=== PATIENT | male | born 1955 | race Caucasian/White ===

== ENCOUNTER → 2016-07-15 | Outpatient (CLI) | payer OTHER ==
[~2016-07-15] MED LIST: ALLO300T2 PO; AMLO-114 PO; CHOL20007 PO; LOSA50TA6 PO; METF500T PO; PANT40TA PO; POTA-335 PO; PRLSR20 PO; TRIA37.5 PO
[2016-07-15 12:23] LABS: BASO % 0.6 %; BASO ABS # 0.05 K/uL (0-0.2); COMPLETE YES; EOS % 1.2 %; HEMATOCRIT 47.7 % (42-52); IG% 0.4 %; LYMPH % 26.8 %; MEAN CORPUSCULAR HEMOGLOBIN 29.2 pg (25-34); MEAN CORPUSCULAR HGB CONC 32.1 g/dl (32-36); MEAN PLATELET VOLUME 10.1 fL (7.4-10.4); MONO % 8.9 %; NEUT % 62.1 %; PLATELET COUNT 287 K/uL (130-400); RED BLOOD COUNT 5.24 M/uL (4.7-6.1); WHITE BLOOD COUNT 8.21 K/uL (4.8-10.8)
[2016-07-15 12:41] LABS: ALB/GLOB RATIO 1.1 (0.9-2); ALKALINE PHOSPHATASE 76 U/L (45-117); ALT/SGPT 31 U/L (12-78); AST/SGOT 12 U/L (15-37); BLOOD UREA NITROGEN 22 mg/dl (7-18); BUN/CREATININE RATIO 18.4 (10-20); CALCIUM 8.9 mg/dl (8.5-10.1); CARBON DIOXIDE 28 mmol/L (21-32); CHLORIDE 103 mmol/L (98-107); CHOLESTEROL 152 mg/dl (0-200); CHOLESTEROL/HDL RATIO 3.9; GLUCOSE 118 mg/dl (70-99); HDL CHOLESTEROL 39 mg/dl; POTASSIUM 4.1 mmol/L (3.5-5.1); SODIUM 140 mmol/L (136-145)
[2016-07-15 12:50] LABS: ESTIMATED AVERAGE GLUCOSE 126 mg/dl; HA1C FLAG Normal (Normal)
[2016-07-15 12:55] LABS: LDL CHOLESTEROL CALCULATED 91 mg/dl; PROSTATE SPECIFIC ANTIGEN 0.631 ng/ml (0.000-4.000); TRIGLYCERIDES 110 mg/dl (0-150); VERY LOW DENSITY LIPOPROT CALC 22 mg/dl
== END | disposition home or self-care (01) ==
LOC: C.LABBFT 07:46
PROVIDERS: ATTEND Internal Medicine
DX: E78.5 Hyperlipidemia, unspecified (principal); E11.9 Type 2 diabetes mellitus without complications; Z12.5 Encounter for screening for malignant neoplasm of prostate

== ENCOUNTER → 2016-07-30 | Outpatient (CLI) | payer OTHER ==
[2016-07-30 14:14] LABS: LYME DISEASE AB IGG NEG (NEG)
[2016-07-30 14:15] LABS: LYME DISEASE AB IGM NEG (NEG)
== END | disposition home or self-care (01) ==
LOC: C.LABBFT 09:59
PROVIDERS: ATTEND Internal Medicine
DX: M25.50 Pain in unspecified joint (principal)

== ENCOUNTER → 2016-10-23 | Outpatient (CLI) | payer OTHER ==
[~2016-10-23] MED LIST changes: +ATOR-22 PO; -METF500T PO; -PRLSR20 PO
[2016-10-23 13:00] LABS: BLOOD UREA NITROGEN 16 mg/dl (7-18); BUN/CREATININE RATIO 13.4 (10-20); CALCIUM 8.9 mg/dl (8.5-10.1); CARBON DIOXIDE 30 mmol/L (21-32); CHLORIDE 106 mmol/L (98-107); GLUCOSE 110 mg/dl (70-99); POTASSIUM 3.5 mmol/L (3.5-5.1); SODIUM 143 mmol/L (136-145)
== END | disposition home or self-care (01) ==
LOC: C.LABBFT 10:58
PROVIDERS: ATTEND Physician Assistant Medical
DX: I10 Essential (primary) hypertension (principal)

== ENCOUNTER → 2017-01-02 | Day surgery (SDC) | payer OTHER ==
[2016-09-20 11:33] VITALS: BMI 33.0
[2016-12-30 10:40] VITALS: BMI 33.0
[~2017-01-02] VITALS: Ht 182.9 cm; Wt 111.4 kg
[~2017-01-02] MED LIST changes: -ATOR-22 PO; +LIDOCAINE HCL 2% 2 ML VIAL (20MG/ML) ONE; -POTA-335 PO; +PROPOFOL IV EMULSION 10 MG/ML 20 ML VIAL IV ONE; +SODIUM CHLORIDE 0.9% 500ML 500 ML IV ONE
[2017-01-02 13:45] VITALS: Ht 182.9 cm; Wt 111.4 kg
[2017-01-02 13:46] VITALS: TEMP 36.8
--- NOTE | 2017-01-02 14:31 | Endo History and Physical ---
History & Physical Date of Service: Jan 02, 2017. 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 Past Surgical History Hx Cardiac Surgery: No Hx Internal Defibrillator: No Hx Pacemaker: No Hx Abdominal Surgery: Yes (INCARCERATED HERNIA REPAIR) Hx of Implantable Prosthesis: No Hx Post-Op Nausea and Vomiting: No Hx Cancer Surgery: Yes (BCC REMOVALS (MOHS)) Hx Thoracic Surgery: No Hx Orthopedic: No Hx Urinary Tract Surgery: No Family History None Social History Smoking Status: Never Smoker Hx Substance Use: No Hx Alcohol Use: Yes (OCAS ) Allergies Coded Allergies: No Known Allergies (Verified , 01/02/17) Current Medications Reported Home Medications Medications Dose Route/Sig Max Daily Dose Days Date Category Cozaar (Losartan Potassium) 50 Mg Tab 50 Mg PO QAM 12/30/16 Reported Vitamin D3 (Cholecalciferol) 2,000 Unit Tab 1 Tab PO QAM 09/20/16 Reported Protonix (Pantoprazole Sodium) 40 Mg Tab 40 Mg PO QAM 09/20/16 Reported Zyloprim (Allopurinol) 300 Mg Tab 300 Mg PO QAM 02/10/12 Reported Norvasc (Amlodipine Besylate) 10 Mg Tab 10 Mg PO QAM 04/16/06 Reported Dyazide 37.5MG/25MG (Triamterene/HCTZ) Cap 1 Tab PO QAM 04/16/06 Reported Vital Signs Weight (Kilograms): 111.36 Height (Feet): 6 Height (Inches): 0 Date Time Temp Pulse Resp B/P (MAP) Pulse Ox O2 Delivery O2 Flow Rate FiO2 01/02/17 13:46 36.8 50 20 134/77 (96) 95 Room Air Physical Exam General Appearance: WD/WN, no apparent distress Respiratory/Chest: Auscultation: breath sounds normal Cardiovascular: Heart Auscultation: RRR Abdomen: Bowel Sounds: normal Inspection & Palpation: soft, non-distended, no tenderness, guarding & rebound Assessment and Plan Assessment: 61 yo CM who presents for 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 Plan: Proceed with EGD.
--- NOTE | 2017-01-02 14:48 | Discharge Instructions ---
Endoscopy Patient Instructions Date / Procedure(s) Performed Jan 02, 2017. EGD Allergy Information Coded Allergies: No Known Allergies (Verified , 01/02/17) Discharge Date / Findings Jan 02, 2017. Patel's Esophagus s/p biopsies Hiatal hernia Medication Instructions OK to resume all medications today as prescribed Reported Home Medications Medications Dose Route/Sig Max Daily Dose Days Date Category Cozaar (Losartan Potassium) 50 Mg Tab 50 Mg PO QAM 12/30/16 Reported Vitamin D3 (Cholecalciferol) 2,000 Unit Tab 1 Tab PO QAM 09/20/16 Reported Protonix (Pantoprazole Sodium) 40 Mg Tab 40 Mg PO QAM 09/20/16 Reported Zyloprim (Allopurinol) 300 Mg Tab 300 Mg PO QAM 02/10/12 Reported Norvasc (Amlodipine Besylate) 10 Mg Tab 10 Mg PO QAM 04/16/06 Reported Dyazide 37.5MG/25MG (Triamterene/HCTZ) Cap 1 Tab PO QAM 04/16/06 Reported Provider Instructions Activity Restrictions - No exercising or heavy lifting for 24 hours. - Do not drink alcohol the day of the procedure. - Do not drive a car or operate machinery until the day after the procedure. - Do not make any important decisions or sign important papers in 24 hours after the procedure. Following Day: - Return to full activity which may include returning to work/school. Diet Start your diet with liquids and light foods (jello, soup, juice, toast). Then eat your usual diet if not nauseated. Treatment For Common After Affects For mild abdominal pain, bloating, or excessive gas: - Rest - Eat lightly - Lie on right side Follow-Up Information Follow-up with DR CHOW as scheduled Anesthesia Information What You Should Know You have had a procedure that required some medicine to reduce anxiety and discomfort. This treatment is called moderate sedation. After receiving the treatment, you may be sleepy, but you will be able to breathe on your own. The effects of the treatment may last for several hours. Follow these instructions along with Activity/Diet recommendations noted above: * Do NOT do anything where dizziness or clumsiness would be dangerous. * Rest quietly at home today, then you can be up and about tomorrow. * Have a responsible person stay with you the rest of today. * You may have had an I.V. today. If so, you may take the dressing off later today. Recommendations Call your doctor if: * Trouble breathing * Continuous vomiting for more than 24 hours * Temperature above 101 degrees * Severe abdominal pain or bloating * Pain not relieved by pain medicine ordered * There is increased drainage or redness from any incision * A large amount of rectal bleeding greater than 2-3 tablespoons. (If you had a polyp/s removed or have hemorrhoids, a small amount of blood - from the rectum is to be expected.) * You have any unanswered questions or concerns. IN THE EVENT OF A SERIOUS EMERGENCY, GO TO THE NEAREST EMERGENCY ROOM Your discharge instructions were prepared by provider Jason Navarrete. Patient Instructions Signature Page Hasmukh Allison Patient (or Guardian) Signature/Date: I have read and understand the instructions given to me by my caregivers. Caregiver/RN/Doctor Signature/Date: The above-named patient and/or guardian has received patient instructions on this date. + Original Patient Signature Page (only) stays with chart. Please make copy for patient.
--- NOTE | 2017-01-02 14:56 | GI REPORT ---
Procedure Date: 01/02/2017 2:08 PM Procedure: Upper GI endoscopy Indications: Patel's esophagus Medicines: Monitored Anesthesia Care Complications: No immediate complications. Estimated Blood Loss: Estimated blood loss: none. Procedure: Pre-Anesthesia Assessment: - Prior to the procedure, a History and Physical was performed, and patient medications and allergies were reviewed. The patient's tolerance of previous anesthesia was also reviewed. The risks and benefits of the procedure and the sedation options and risks were discussed with the patient. All questions were answered, and informed consent was obtained. Prior Anticoagulants: The patient has taken no previous anticoagulant or antiplatelet agents. ASA Grade Assessment: II - A patient with mild systemic disease. After reviewing the risks and benefits, the patient was deemed in satisfactory condition to undergo the procedure. After obtaining informed consent, the endoscope was passed under direct vision. Throughout the procedure, the patient's blood pressure, pulse, and oxygen saturations were monitored continuously. The scope was introduced through the mouth, and advanced to the second part of duodenum. The upper GI endoscopy was accomplished without difficulty. The patient tolerated the procedure well. Findings: There were esophageal mucosal changes suspicious for short-segment Patel's esophagus present at the gastroesophageal junction. The maximum longitudinal extent of these mucosal changes was 2 cm in length. Mucosa was biopsied with a cold forceps for histology. One specimen bottle was sent to pathology. A small hiatus hernia was present. The examined duodenum was normal. Impression: - Esophageal mucosal changes suspicious for short-segment Patel's esophagus. Biopsied. - Small hiatus hernia. - Normal examined duodenum. Recommendation: - Resume previous diet. - Continue present medications. - Await pathology results. - Return to primary care physician as previously scheduled. Jason Navarrete, DO 01/02/2017 2:55:46 PM This report has been signed electronically. Note Initiated On: 01/02/2017 2:08 PM I attest to the content of the Intraoperative Record and orders documented therein, exceptions below
--- NOTE | 2017-01-02 15:10 | Anesthesiology Progress Note ---
Anesthesia Post Op Note Date & Time Jan 02, 2017 at 15:10 Vital Signs Pain Intensity: 0 Vital Signs Past 12 Hours Date Time Temp Pulse Resp B/P (MAP) Pulse Ox O2 Delivery O2 Flow Rate FiO2 01/02/17 15:07 53 18 142/90 (107) 95 Room Air 01/02/17 14:54 58 18 145/83 (103) 94 Room Air 01/02/17 14:49 66 16 132/80 (97) 96 Room Air 01/02/17 13:46 36.8 50 20 134/77 (96) 95 Room Air Notes Mental Status: alert / awake / arousable, participated in evaluation Pt Amnestic to Procedure: Yes Nausea / Vomiting: adequately controlled Pain: adequately controlled Airway Patency, RR, SpO2: stable & adequate BP & HR: stable & adequate Hydration State: stable & adequate Anesthetic Complications: no major complications apparent
[2017-01-02 15:17] VITALS: BP 138/101; PULSE 51; O2SAT 95
== END | disposition home or self-care (01) ==
LOC: C.GI 13:22
PROVIDERS: ATTEND Internal Medicine
DX: K20.9 Esophagitis, unspecified (principal); K44.9 Diaphragmatic hernia without obstruction or gangrene; Z85.828 Personal history of other malignant neoplasm of skin

== ENCOUNTER → 2017-01-15 | Outpatient (CLI) | payer OTHER ==
[~2017-01-15] MED LIST changes: -LIDOCAINE HCL 2% 2 ML VIAL (20MG/ML) ONE; -PROPOFOL IV EMULSION 10 MG/ML 20 ML VIAL IV ONE; -SODIUM CHLORIDE 0.9% 500ML 500 ML IV ONE
[2017-01-15 12:44] LABS: MANUAL MICROSCOPIC REQUIRED? NO; REVIEW REQ? NO; URINE APPEARANCE CLEAR (CLEAR); URINE BILIRUBIN NEG (NEG); URINE COLOR DK YELLOW; URINE NITRITE NEG (NEG); URINE SPECIFIC GRAVITY 1.026 (1.000-1.030); UROBILINOGEN NEG (NEG); ZZUR CULT IF INDIC CLEAN CATCH NO
[2017-01-15 13:07] LABS: ESTIMATED AVERAGE GLUCOSE 137 mg/dl; HA1C FLAG Normal (Normal)
[2017-01-15 13:24] LABS: RATIO 8.5 mcg/mg (0-30.0)
== END | disposition home or self-care (01) ==
LOC: C.LABBFT 09:17
PROVIDERS: ATTEND Internal Medicine
DX: E11.9 Type 2 diabetes mellitus without complications (principal); E55.9 Vitamin D deficiency, unspecified

== ENCOUNTER → 2017-04-18 | Outpatient (CLI) | payer OTHER | END | disposition home or self-care (01) | LOC: C.PATHSPEC 14:27 | PROVIDERS: ATTEND Dermatology | DX: D04.39 Carcinoma in situ of skin of other parts of face (principal); C44.212 Basal cell carcinoma of skin of right ear and external auricular canal; D04.61 Carcinoma in situ of skin of right upper limb, including shoulder ==

== ENCOUNTER → 2017-05-28 | Day surgery (SDC) | payer OTHER ==
[2017-05-09 09:51] VITALS: BMI 33.0
--- NOTE | 2017-05-09 10:09 | PAT Medication Instructions ---
Service Date May 09, 2017. Current Home Medication List Allopurinol (Zyloprim), 300 MG PO QAM Amlodipine (Norvasc), 10 MG PO QAM Atorvastatin (Lipitor), 20 MG PO HS Cholecalciferol (Vitamin D3), 1 TAB PO QAM Losartan Potassium (Cozaar), 50 MG PO QAM Pantoprazole (Protonix), 40 MG PO QAM Triamterene/Hctz (Dyazide 37.5MG/25MG), 1 TAB PO QAM Medication Instructions For Your Scheduled Surgery - Hold the following medications the morning of surgery: Triamterene/Hctz (Dyazide 37.5MG/25MG), 1 TAB PO QAM Cholecalciferol (Vitamin D3), 1 TAB PO QAM Losartan Potassium (Cozaar), 50 MG PO QAM - Take the following medications the morning of surgery with a sip of water: Pantoprazole (Protonix), 40 MG PO QAM Amlodipine (Norvasc), 10 MG PO QAM Allopurinol (Zyloprim), 300 MG PO QAM - Take the following medications as scheduled the night before surgery: Atorvastatin (Lipitor), 20 MG PO HS If you have any questions please call us at [phone] or [phone] or [phone]
[2017-05-09 11:08] LABS: BASO % 0.4 %; BASO ABS # 0.03 K/uL (0-0.2); COMPLETE YES; EOS % 1.4 %; HEMATOCRIT 43.1 % (42-52); IG% 0.1 %; LYMPH % 24.6 %; LYMPH ABS # 1.91 K/uL (1.2-3.4); MEAN CELL VOLUME 91.9 fL (80-100); MEAN CORPUSCULAR HEMOGLOBIN 30.3 pg (25-34); MEAN CORPUSCULAR HGB CONC 32.9 g/dl (32-36); MEAN PLATELET VOLUME 9.8 fL (7.4-10.4); NEUT % 64.5 %; PLATELET COUNT 245 K/uL (130-400); RED BLOOD COUNT 4.69 M/uL (4.7-6.1); WHITE BLOOD COUNT 7.76 K/uL (4.8-10.8)
[2017-05-09 11:21] LABS: PARTIAL THROMBOPLASTIN RATIO 1.1; PROTHROMBIN TIME (PATIENT) 10.7 SECONDS (9.0-12.0)
[2017-05-09 11:42] LABS: BUN/CREATININE RATIO 18.1 (10-20); CALCIUM 8.9 mg/dl (8.5-10.1); CREATININE 1.08 mg/dl (0.60-1.40); POTASSIUM 3.5 mmol/L (3.5-5.1)
[~2017-05-28] VITALS: Ht 182.9 cm; Wt 111.9 kg
[~2017-05-28] MED LIST changes: +ACETAMINOPHEN 325 MG TAB PO PRN; +ACETAMINOPHEN IV 1,000 MG in EMPTY BAG 0 ML IV PRN; +ACETAMINOPHEN IV 650 MG in EMPTY BAG 0 ML IV PRN; +ATOR-22 PO; +ATROPINE SULFATE 0.1 MG/ML 5ML SYR IV PRN; +BACITRACIN OINT 15 GM TUBE ONE; +CEFAZOLIN SOD 2000MG/10 ML IV PUSH IV ONE; +EpHEDrine SULFATE INJ 50 MG/ML AMP IV PRN; +EpINEphrine HCL INJ 1 MG/ML 5ML SYRINGE ONE; +FENTANYL CITRATE INJ 50 MCG/1 ML 2 ML VIAL IV PRN; +FENTANYL CITRATE INJ 50 MCG/1 ML 2 ML VIAL ONE; +LACTATED RINGER'S 1000ML 1,000 ML IV SCH; +LIDOCAINE HCL 2% 2 ML VIAL (20MG/ML) ONE; +LIDOCAINE/EPINEPHRINE 1% 20 ML VIAL ONE; +METOCLOPRAMIDE HCL INJ 5 MG/ML 2 ML VIAL IV PRN; +MIDAZOLAM HCL 1 MG/ML 2ML VIAL ONE; +ONDANSETRON INJ 2 MG/ML 2 ML VIAL IV PRN; +ONDANSETRON INJ 2 MG/ML 2 ML VIAL ONE; +OXYCODONE/ACETAMINOPHEN 5-325 TAB PO PRN; +POVIDONE-IODINE OP SOLN 30 ML BTL ONE; +PROMETHAZINE HCL INJ 6.25 MG in SODIUM CHLORIDE 0.9% 50ML 50 ML IV PRN; +PROPOFOL IV EMULSION 10 MG/ML 20 ML VIAL IV ONE; +SODIUM CHLORIDE 0.9% 1000ML 1,000 ML IV SCH
[2017-05-28 09:38] VITALS: BP 135/72; PULSE 50; TEMP 36.5; O2SAT 97; Ht 182.9 cm; Wt 111.9 kg
--- NOTE | 2017-05-28 11:16 | History & Physical Bridge Note ---
H&P Re-Evaluation Bridge Note: I have examined the patient, reviewed the History & Physical and in the interval since the performance of the History & Physical I have noted the following changes of clinical significance: No changes noted
--- NOTE | 2017-05-28 13:01 | Discharge Instructions ---
Discharge Instructions Date of Service May 28, 2017. Admission Reason for Admission: Basal Cell Carcinoma of Skin of Face; Squamous Ping Discharge Discharge Diagnosis / Problem: basal cell carcinoma and squamous cell carcinoma Discharge Goals Goal(s): Decrease discomfort Activity Recommendations Activity Limitations: per Instructions/Follow-up section ACTIVITY RECOMMENDATIONS: __Normal activities _x_No bending, lifting or straining __No driving _x_Driving allowed when you are off pain medications _x_Walking permitted __You should have help at home for ___ days DRESSINGS: __No dressings required _x_Keep dressings dry/in place until 3 days after surgery. YOu may then remove dressings and do not need to replace __Remove dressings ___ and leave dressings off __Apply ice ___ days __Remove dressings and reapply garment __Apply antibiotic ointment (Bacitracin, Neosporin, etc) to wounds 3-4 times/ day for 10 days BATHING: _x_Keep dressings dry _x_Sponge bathing permitted _x_Showering permitted after dressings are removed in 3 days _x_No swimming, hot tubs or soaking in a tub MEDICATIONS: Resume previous medications unless instructed otherwise by your surgeon. _x_Do not use aspirin, Motrin, Advil or Ibuprofen as these may promote bleeding. Please use Tylenol. _x_Prescription(s) provided: pain medication provided at your last office visit OTHER INSTRUCTIONS: __Record drain output 2-3 times per day SPECIAL CARE INSTRUCTIONS: * It is normal to have a mild fever after surgery. If your temperature is higher than 101.5 degrees F, please call the office at [phone]. * Constipation is a typical side effect of pain medication. An over-the- counter stool softener will help relieve this. * Leaking around surgical drains may occur and should not cause concern. Sometimes these drains become clogged. If this happens, remove the bulb and milk the clot out of the tube, then replace the bulb. * Drainage from wounds after liposuction is normal and should be expected. Garments will become soiled. You should protect furniture and bedding. This drainage should mostly subside within 2-3 days. Leave garments in place unless instructed to remove them. * If you have unusual drainage from a wound or are concerned you have an infection or have any questions or concerns, please call the office at [phone]. FOLLOW UP VISIT: If not already scheduled, please call the office, , when you return home after surgery to schedule an appointment to be seen in __6_ days. . Current Hospital Diet Patient's current hospital diet: Discharge Diet Recommended Diet: Regular Diet Pending Studies Studies pending at discharge: yes List of pending studies: pathology Medical Emergencies . Who to Call and When: Medical Emergencies: If at any time you feel your situation is an emergency, please call 911 immediately. . Non-Emergent Contact Non-Emergency issues call your: Primary Care Provider, Surgeon . "Provider Documentation" section prepared by Lalitha Hinkle. . VTE Core Measure Inpt VTE Proph given/why not?: SCD's [place] Drug Monitoring Program Search Results: no issues identified
--- NOTE | 2017-05-28 13:48 | [facility] Post Operative Brief Note ---
Immediate Operative Summary Operative Date May 28, 2017. 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 Jennifer Holley Lockstitch Front Edge Tape Sewer Surgeon(s) Lalitha Hinkle PA-C Estimated Blood Loss 5 Findings BCC right postauricular area; margins negative SCC (invasive) left forehead; margins negative Specimens Frozen specimen #1: Basal cell carcinoma behind right ear, suture raudel at 12 O'Clock sent to the lab at 1238 Frozen specimen #2: Squamous cell carcinoma left forehead, suture raudel at 12 O'Clock sent to the lab at 1241 Permanent Specimen A: Squamous cell carcinoma in situ right forearm Anesthesia general Complication(s) None Disposition Recovery Room / PACU
--- NOTE | 2017-05-28 14:43 | Anesthesiology Progress Note ---
Anesthesia Post Op Note Date & Time May 28, 2017 at 14:43 Vital Signs Pain Intensity: 0 Vital Signs Past 12 Hours Date Time Temp Pulse Resp B/P (MAP) Pulse Ox O2 Delivery O2 Flow Rate FiO2 05/28/17 14:40 63 15 153/90 96 Nasal Cannula 3 05/28/17 14:30 36.2 64 15 143/89 94 Nasal Cannula 3 05/28/17 14:20 63 15 143/85 94 Oxymask 5 05/28/17 14:10 64 14 149/91 95 Oxymask 5 05/28/17 14:03 36.1 73 12 157/97 94 Oxymask 5 05/28/17 09:38 36.5 50 18 135/72 (93) 97 Room Air Notes Mental Status: alert / awake / arousable, participated in evaluation Pt Amnestic to Procedure: Yes Nausea / Vomiting: adequately controlled Pain: adequately controlled Airway Patency, RR, SpO2: stable & adequate BP & HR: stable & adequate Hydration State: stable & adequate Anesthetic Complications: no major complications apparent
[2017-05-28 14:45] VITALS: BP 134/83; PULSE 64; TEMP 36.5; O2SAT 95
[2017-05-28 15:15] VITALS: BP 134/75; PULSE 58; O2SAT 97
[2017-05-28 15:45] VITALS: BP 131/76; PULSE 61; TEMP 36.4; O2SAT 94
--- NOTE | 2017-05-28 16:37 | OPERATIVE REPORT ---
DATE OF OPERATION: 05/28/2017 PREOPERATIVE DIAGNOSES: Basal cell carcinoma, right postauricular area; squamous cell carcinoma in situ, left forehead; and squamous cell carcinoma in situ, right forearm. PROCEDURE: Excision of left forehead squamous cell carcinoma with frozen section and primary closure, excision of right postauricular basal cell carcinoma with frozen section and primary closure, and excision of right forearm squamous cell carcinoma in situ with primary closure. SURGEON: Dr. Jennifer Holley. JUDICIAL CLERK: Lalitha Hinkle PA-C. ANESTHESIA: General. COMPLICATIONS: None. INDICATION FOR THE PROCEDURE: The patient is a 62-year-old male who was referred to my office by Dr. Whitney regarding several biopsy proven skin malignancies. Given their size and location, he was referred to me for possible excision. We discussed options including a referral for from Mohs' surgery or excision with frozen section. He elected excision with frozen section based on prior negative experiences with Mohs. BRIEF DESCRIPTION OF THE PROCEDURE: The risks, benefits and alternatives of the procedure were explained to the patient, who agreed and signed consent. He was identified and marked in the preoperative holding area. He was brought to the operating room, positioned supine and an LMA was placed without incident. Surgical sites were prepped and draped sterilely. A time-out procedure was performed. Each lesion was marked for excision. Each lesion was then anesthetized using 1% lidocaine with epinephrine with a fresh needle for each injection. I began with the excision of the basal cell carcinoma behind the right ear. Maximal excision diameter of this lesion was 3 x 3 cm. A 15 blade scalpel made the circular skin incision into the underlying subcutaneous fat. The lesion was removed with some underlying subcutaneous fat. A 5-0 silk suture was used to raudel the 12 o'clock position and the lesion was sent for frozen section. Hemostasis was achieved with electrocautery. Wet saline soaked gauze was placed in the wound bed while I awaited the results. A similar excision was performed on the left forehead with maximal excision of 2 x 1.5 cm. A suture marked at 12 o'clock. The lesion was taken with some underlying subcutaneous fat and sent for frozen section. Lastly, the right forearm lesion was excised with maximal excision diameter of 1.5 x 1.5 cm. Given that this was an extremity lesion and I was able to take a wide margin, I did not send this for frozen section. The right forearm wound was then closed in an elliptical fashion using 3-0 PDS interrupted dermal sutures and 3-0 Monocryl running subcuticular suture for a total wound closure length of 6 cm. Frozen section results were called and the right ear lesion was noted to be a nodular basal cell carcinoma with negative margins. The left forehead lesion was noted to be a squamous cell carcinoma with invasion with all final margins negative. Both of these lesions were able to be closed in a primary fashion. The postauricular wound was converted from a circular wound into an elliptical wound to facilitate closure and the scar was carried around the curve of the helical groove. 3-0 PDS interrupted dermal sutures were placed followed by 4-0 Vicryl interrupted half buried horizontal mattress sutures. Total wound closure length was 4 cm. Left forehead wound was also converted into an elliptical incision along the lines of relaxed skin tension. Hemostasis was achieved with electrocautery. The wound was reapproximated using 4-0 PDS interrupted dermal sutures and 5-0 Monocryl running subcuticular suture. Total wound closure length was 4 cm. Antibiotic ointment and dry dressings were placed to the left forehead and right postauricular lesion closures. The right forearm wound was dressed with Dermabond. The procedure was tolerated well. The patient was awakened and transferred to recovery in satisfactory condition. I attest to the content of the Intraoperative Record and any orders documented therein. Any exceptions are noted below. [facility]
== END | disposition home or self-care (01) ==
LOC: C.ACU 09:25
PROVIDERS: ATTEND Plastic Surgery
DX: C44.329 Squamous cell carcinoma of skin of other parts of face (principal); C76.41 Malignant neoplasm of right upper limb; C44.41 Basal cell carcinoma of skin of scalp and neck; L57.0 Actinic keratosis; I78.1 Nevus, non-neoplastic; E11.9 Type 2 diabetes mellitus without complications; E78.5 Hyperlipidemia, unspecified; I10 Essential (primary) hypertension; A69.20 Lyme disease, unspecified; E55.9 Vitamin D deficiency, unspecified; Z80.8 Family history of malignant neoplasm of other organs or systems

== ENCOUNTER → 2017-06-13 | Outpatient (CLI) | payer OTHER ==
[~2017-06-13] MED LIST changes: -ACETAMINOPHEN 325 MG TAB PO PRN; -ACETAMINOPHEN IV 1,000 MG in EMPTY BAG 0 ML IV PRN; -ACETAMINOPHEN IV 650 MG in EMPTY BAG 0 ML IV PRN; -ATROPINE SULFATE 0.1 MG/ML 5ML SYR IV PRN; -BACITRACIN OINT 15 GM TUBE ONE; -CEFAZOLIN SOD 2000MG/10 ML IV PUSH IV ONE; -EpHEDrine SULFATE INJ 50 MG/ML AMP IV PRN; -EpINEphrine HCL INJ 1 MG/ML 5ML SYRINGE ONE; -FENTANYL CITRATE INJ 50 MCG/1 ML 2 ML VIAL IV PRN; -FENTANYL CITRATE INJ 50 MCG/1 ML 2 ML VIAL ONE; -LACTATED RINGER'S 1000ML 1,000 ML IV SCH; -LIDOCAINE HCL 2% 2 ML VIAL (20MG/ML) ONE; -LIDOCAINE/EPINEPHRINE 1% 20 ML VIAL ONE; -METOCLOPRAMIDE HCL INJ 5 MG/ML 2 ML VIAL IV PRN; -MIDAZOLAM HCL 1 MG/ML 2ML VIAL ONE; -ONDANSETRON INJ 2 MG/ML 2 ML VIAL IV PRN; -ONDANSETRON INJ 2 MG/ML 2 ML VIAL ONE; -OXYCODONE/ACETAMINOPHEN 5-325 TAB PO PRN; -POVIDONE-IODINE OP SOLN 30 ML BTL ONE; -PROMETHAZINE HCL INJ 6.25 MG in SODIUM CHLORIDE 0.9% 50ML 50 ML IV PRN; -PROPOFOL IV EMULSION 10 MG/ML 20 ML VIAL IV ONE; -SODIUM CHLORIDE 0.9% 1000ML 1,000 ML IV SCH
[2017-06-13 12:43] LABS: BASO % 0.7 %; BASO ABS # 0.05 K/uL (0-0.2); COMPLETE YES; EOS % 0.9 %; HEMATOCRIT 44.5 % (42-52); IG% 0.4 %; LYMPH % 29.2 %; LYMPH ABS # 2.19 K/uL (1.2-3.4); MEAN CELL VOLUME 92.5 fL (80-100); MEAN CORPUSCULAR HEMOGLOBIN 30.4 pg (25-34); MEAN CORPUSCULAR HGB CONC 32.8 g/dl (32-36); MEAN PLATELET VOLUME 10.3 fL (7.4-10.4); NEUT % 58.8 %; PLATELET COUNT 289 K/uL (130-400); RED BLOOD COUNT 4.81 M/uL (4.7-6.1); WHITE BLOOD COUNT 7.49 K/uL (4.8-10.8)
[2017-06-13 12:48] LABS: PARTIAL THROMBOPLASTIN RATIO 1.1; PROTHROMBIN TIME (PATIENT) 10.7 SECONDS (9.0-12.0)
[2017-06-13 12:50] LABS: ALT/SGPT 43 U/L (12-78); AST/SGOT 20 U/L (15-37); BLOOD UREA NITROGEN 21 mg/dl (7-18); BUN/CREATININE RATIO 18.9 (10-20); CALCIUM 8.8 mg/dl (8.5-10.1); CARBON DIOXIDE 28 mmol/L (21-32); CHLORIDE 106 mmol/L (98-107); CREATININE 1.13 mg/dl (0.60-1.40); GLUCOSE 118 mg/dl (70-99); POTASSIUM 3.6 mmol/L (3.5-5.1); SODIUM 139 mmol/L (136-145)
[2017-06-13 12:51] LABS: ESTIMATED AVERAGE GLUCOSE 137 mg/dl; HA1C FLAG Normal (Normal)
[2017-06-13 12:53] LABS: ALB/GLOB RATIO 1.2 (0.9-2); ALKALINE PHOSPHATASE 71 U/L (45-117); CHOLESTEROL 103 mg/dl (0-200); CHOLESTEROL/HDL RATIO 2.9; HDL CHOLESTEROL 35 mg/dl; LDL CHOLESTEROL CALCULATED 48 mg/dl; TRIGLYCERIDES 102 mg/dl (0-150); VERY LOW DENSITY LIPOPROT CALC 20 mg/dl
== END | disposition home or self-care (01) ==
LOC: C.LABBFT 09:35
PROVIDERS: ATTEND Internal Medicine
DX: Z85.828 Personal history of other malignant neoplasm of skin (principal); E11.9 Type 2 diabetes mellitus without complications; E78.5 Hyperlipidemia, unspecified

== ENCOUNTER 2017-08-24 16:24 | Emergency (ER) | payer OTHER ==
[~2017-08-24] VITALS: Ht 180.3 cm; Wt 116.7 kg
[2017-08-24 16:25] VITALS: TEMP 36.7; Ht 180.3 cm; Wt 116.7 kg
[2017-08-24] MEDS ORDERED: MoRPHine SULFATE 4 MG/ML 1 ML CARP\\VIAL IV STA ×3 (16:41→21:38)
[2017-08-24] MEDS ORDERED: MoRPHine SULFATE 4 MG/ML 1 ML CARP\\VIAL ONE (16:49)
[2017-08-24 17:12] LABS: BASO % 0.5 %; BASO ABS # 0.05 K/uL (0-0.2); EOS % 0.7 %; EOS ABS # 0.07 K/uL (0-0.5); HEMATOCRIT 44.9 % (42-52); HEMOGLOBIN 15.3 g/dL (14.0-18.0); IG# 0.02 K/uL (0.00-0.02); LYMPH ABS # 2.39 K/uL (1.2-3.4); MEAN CELL VOLUME 89.1 fL (80-100); MEAN CORPUSCULAR HEMOGLOBIN 30.4 pg (25-34); MEAN CORPUSCULAR HGB CONC 34.1 g/dl (32-36); MEAN PLATELET VOLUME 9.6 fL (7.4-10.4); MONO % 7.6 %; MONO ABS # 0.79 K/uL (0.11-0.59); NEUT ABS # 7.09 K/uL (1.4-6.5); PLATELET COUNT 253 K/uL (130-400); RED CELL DISTRIBUTION WIDTH CV 14.2 % (11.5-14.5); WHITE BLOOD COUNT 10.41 K/uL (4.8-10.8)
[2017-08-24 17:23] LABS: CREATININE 1.31 mg/dl (0.60-1.40); POTASSIUM 3.1 mmol/L (3.5-5.1)
[2017-08-24] MEDS ORDERED: CEFAZOLIN IV 1,000 MG in DEXTROSE 5% 50ML 50 ML IV STA ×2 (17:23→17:39)
--- NOTE | 2017-08-24 17:32 | DIAGNOSTIC IMAGING REPORT ---
LEFT HAND 3 VIEWS HISTORY: Left hand pain. L hand sandblasting injury COMPARISON: None. FINDINGS: No fracture or dislocation within the left hand. Diffuse soft tissue gas throughout the majority of the left hand. This extends into the wrist. A few punctate radiopaque foreign bodies overlying the first metacarpal. This could be on the skin surface. IMPRESSION: 1. No fracture or dislocation within the left hand. 2. Near diffuse soft tissue gas throughout the left hand. This raises the possibility of necrotizing fasciitis. However, this could also be due to an acute air injury. Clinical correlation recommended. 3. A few punctate radiopaque foreign bodies overlying the first metacarpal. These could be located on the skin surface. 4. These findings were discussed with the patient's physician surgical supply assistant, Oleg Miller at 530 p.m. on 08/24/2017. Electronically signed by: Tomy Pina M.D. 08/24/2017 5:31 PM Dictated Date/Time: 08/24/2017 5:23 PM
[2017-08-24] MEDS ORDERED: METF500T5 PO (17:54)
[2017-08-24] MEDS ORDERED: CEFAZOLIN IV 2,000 MG in SYRINGE 0 ML IV ONE (18:00)
--- NOTE | 2017-08-24 21:37 | EMERGENCY ROOM VISIT NOTE ---
History First contact with patient: 16:38 Chief Complaint: LACERATION/CUT (NON-SUTURE) Stated Complaint: LEFT HAND CUT Nursing Triage Summary: Pt states, "I was sandblasting and took a chunk out of my left hand. 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 Tetanus is UTD. History of Present Illness The patient is a 62 year old male who presents to the Emergency Room via private vehicle with complaints of "cut left hand". The patient states that about 15 minutes prior to arrival he was operating a sandblasting device, when he accidentally struck the back of his left hand. He notes he is right-hand dominant. He states that the force blasted through his glove and into his hand. He states that it was for brief period of time. He now notes pain radiating from his left hand up to his arm. He notes his tetanus is up-to- date. He rates the overall pain as an 8/10. He last ate at 1 PM. Review of Systems A complete 10-point Review of Systems was discussed with the patient, with pertinent positives and negatives listed in the History of Present Illness. All remaining Review of Systems questions can be considered negative unless otherwise specified. Past Medical/Surgical History Diabetes, HTN Family History Non contributory Social History Smoking Status: Never Smoker Pt. lives locally Current/Historical Medications Scheduled Allopurinol (Zyloprim), 300 MG PO QAM Amlodipine (Norvasc), 10 MG PO QAM Atorvastatin (Lipitor), 20 MG PO HS Losartan Potassium (Cozaar), 50 MG PO QAM Metformin Hcl Er (Glucophage Er), 500 MG PO QAM Pantoprazole (Protonix), 40 MG PO QAM Triamterene/Hctz (Dyazide 37.5MG/25MG), 1 TAB PO QAM Physical Exam Vital Signs Date Time Temp Pulse Resp B/P (MAP) Pulse Ox O2 Delivery O2 Flow Rate FiO2 08/24/17 23:18 58 18 130/75 97 Room Air 08/24/17 21:31 62 18 133/94 96 Room Air 08/24/17 19:57 70 20 138/78 95 Nasal Cannula 1.0 08/24/17 18:06 65 18 103/68 96 Room Air 08/24/17 16:25 36.7 90 16 164/85 95 Room Air Physical Exam VITAL SIGNS - Vital signs and nursing notes were reviewed. Stable. GENERAL -62-year-old male appearing his stated age who is in no acute distress. Communicates well with provider and answers questions appropriately. SKIN - Without rashes. No petechial rashes. Overlying the dorsal aspect of his left hand between the first and second metacarpals there is a 1.5 cm in diameter wound that tracks deeply into the hand. No bleeding noted. HEAD - NC/AT EXTREMITIES - there is tenderness to palpation overlying the patient's hand and wrist. There is crepitus to palpation with evidence of subcutaneous air extending from the patient's left dorsum of the hand to the region just proximal to the elbow. He is neurovascularly intact in this region. Medical Decision & Procedures ER Provider Diagnostic Interpretation: LEFT HAND 3 VIEWS HISTORY: Left hand pain. L hand sandblasting injury COMPARISON: None. FINDINGS: No fracture or dislocation within the left hand. Diffuse soft tissue gas throughout the majority of the left hand. This extends into the wrist. A few punctate radiopaque foreign bodies overlying the first metacarpal. This could be on the skin surface. IMPRESSION: 1. No fracture or dislocation within the left hand. 2. Near diffuse soft tissue gas throughout the left hand. This raises the possibility of necrotizing fasciitis. However, this could also be due to an acute air injury. Clinical correlation recommended. 3. A few punctate radiopaque foreign bodies overlying the first metacarpal. These could be located on the skin surface. 4. These findings were discussed with the patient's physician plumber's assistant, Oleg Miller at 530 p.m. on 08/24/2017. Electronically signed by: Tomy Pina M.D. 08/24/2017 5:31 PM Dictated Date/Time: 08/24/2017 5:23 PM Laboratory Results 08/24/17 16:50 Red Blood Count 5.04, Mean Corpuscular Volume 89.1, Mean Corpuscular Hemoglobin 30.4, Mean Corpuscular Hemoglobin Concent 34.1, Mean Platelet Volume 9.6, Neutrophils (%) (Auto) 68.0, Lymphocytes (%) (Auto) 23.0, Monocytes (%) (Auto) 7.6, Eosinophils (%) (Auto) 0.7, Basophils (%) (Auto) 0.5, Neutrophils # (Auto) 7.09, Lymphocytes # (Auto) 2.39, Monocytes # (Auto) 0.79, Eosinophils # (Auto) 0.07, Basophils # (Auto) 0.05 08/24/17 16:50 Test 08/24/17 16:50 White Blood Count 10.41 K/uL (4.8-10.8) Red Blood Count 5.04 M/uL (4.7-6.1) Hemoglobin 15.3 g/dL (14.0-18.0) Hematocrit 44.9 % (42-52) Mean Corpuscular Volume 89.1 fL (80-100) Mean Corpuscular Hemoglobin 30.4 pg (25-34) Mean Corpuscular Hemoglobin Concent 34.1 g/dl (32-36) Platelet Count 253 K/uL (130-400) Mean Platelet Volume 9.6 fL (7.4-10.4) Neutrophils (%) (Auto) 68.0 % Lymphocytes (%) (Auto) 23.0 % Monocytes (%) (Auto) 7.6 % Eosinophils (%) (Auto) 0.7 % Basophils (%) (Auto) 0.5 % Neutrophils # (Auto) 7.09 K/uL (1.4-6.5) Lymphocytes # (Auto) 2.39 K/uL (1.2-3.4) Monocytes # (Auto) 0.79 K/uL (0.11-0.59) Eosinophils # (Auto) 0.07 K/uL (0-0.5) Basophils # (Auto) 0.05 K/uL (0-0.2) RDW Standard Deviation 46.0 fL (36.4-46.3) RDW Coefficient of Variation 14.2 % (11.5-14.5) Immature Granulocyte % (Auto) 0.2 % Immature Granulocyte # (Auto) 0.02 K/uL (0.00-0.02) Anion Gap 11.0 mmol/L (3-11) Est Creatinine Clear Calc Drug Dose 75.9 ml/min Estimated GFR () 67.2 Estimated GFR (Non- 57.9 BUN/Creatinine Ratio 14.3 (10-20) Calcium Level 9.0 mg/dl (8.5-10.1) Medications Administered Medications (Trade) Dose Ordered Sig/Kimmie Route Start Time Stop Time Status Last Admin Dose Admin Morphine Sulfate (MoRPHine SULFATE INJ) 4 mg NOW STAT IV 08/24/17 16:41 08/24/17 16:43 DC 08/24/17 16:53 4 MG Cefazolin Sodium 2000 mg/Syringe 15 ml @ 3.75 mls/ min TODAY@1800 ONCE IV 08/24/17 18:00 08/24/17 18:03 DC 08/24/17 18:05 3.75 MLS/MIN Morphine Sulfate (MoRPHine SULFATE INJ) 4 mg NOW STAT IV 08/24/17 18:47 08/24/17 18:51 DC 08/24/17 18:54 4 MG Morphine Sulfate (MoRPHine SULFATE INJ) 4 mg NOW STAT IV 08/24/17 21:38 08/24/17 21:39 DC 08/24/17 21:54 4 MG Medical Decision Patient was seen and evaluated as above. He presents to us today status post high-pressure injury to his left hand while sandblasting. He is right-hand dominant. He was able to arrive to the emergency department within 15 minutes of the injury. After obtaining a thorough history and physical examination, IV access was initiated, and the above workup was performed. 2 g of Ancef were given secondary to the injury. I immediately discussed the case with the attending physician, and subsequently the on-call orthopedic surgeon, Dr. Bernardo. He recommended transfer to a tertiary care center. I then placed an immediate call to [facility]. The patient has [facility] insurance. This is the closest facility. I then received a call back from [facility], and spoke with the trauma surgeon, Dr. Mallory at 6:22 PM. We decided this was an orthopedic injury and would not require the trauma team. I was then called back at 6:45 PM by [facility] who noted that the patient would not be able to be serviced at their facility by their orthopedic staff given his acuity of injury. They recommended potential transfer to [place] but also noted that I should reach out to our local hand specialist here. I then called Dr. Farris, a local hand specialist. (who was not astronomy professor for the hospital but kindly gave advice) It was recommended by him also that I transfer the patient to a tertiary care center. He recommended either [facility], or [place]. It was noted that the other closest facility [facility], does not have hand specialty astronomy professor. I then went to talk with the patient to identify his wishes of where he would like to be transferred and the next closest facility. I offered him the recommendations by our hand specialist. The patient chose [facility] which I do believe is reasonable. I then received a call from the hand specialist from [facility] at 7:20 PM. I spoke with Dr. Murillo. We discussed the case. He then accepted the patient for transfer. I then attempted to arrange ambulance transport and it was noted that after several attempts at calling numerous places in the area who can physically transfer the patient, the earliest this could be done was 7 AM. I then called the orthopedic surgeon Dr. Murillo at 9:40 PM back and explained the unique situation with transportation. I then called Dr. Bernardo at 9:[address] Bernardo noted that he would come to evaluate the patient, and promptly came to the emergency department. He evaluated the patient. We again felt the patient should be transferred. Due to amount of time the patient was here in the emergency department we then called [facility], and talked with Dr. Mazariegos the orthopedic hand specialist. He also spoke with Dr. Bernardo. We were in agreement the patient needs to be transferred for emergent care. Dr. Bernardo spoke with Dr. Murillo who accepted the patient for transfer via air. He was transferred. During the patient's stay here he required numerous morphine administrations. The wound was also cleansed with normal saline and dressed with Betadine. Care was made to not inject any saline into the deeper areas of the wound. Baseline labs were also obtained. There is no concerning leukocytosis or anemia. There is no concern of leukocytosis or anemia. Metabolic panel reveals potassium of 3.1. Kidney function reveals BUN elevated at 19, creatinine 1.31. Patient was comfortable throughout his stay with pain medication. In evaluation treatment this patient following differential diagnoses were entertained: High-pressure injury, fracture, dislocation, retained foreign body , among others. Impression Primary Impression: High-pressure injection injury of finger of left hand Departure Information Dispostion Transfer Acute Care Facility Condition GOOD Referrals Regis Hussein M.D. (PCP) Patient Instructions My [facility]
--- NOTE | 2017-08-24 23:08 | DIAGNOSTIC IMAGING REPORT ---
L FOREARM 2 VIEWS ROUTINE, L HUMERUS MIN 2 VIEWS ROUTINE CLINICAL HISTORY: Left arm subcutaneous air s/p high pressure injury COMPARISON STUDY: Left hand 08/24/2017. FINDINGS: There is extensive subcutaneous gas extending proximally from the hand into the forearm to the level of the distal upper arm. No fracture or dislocation. Overlying bandage at the hand. Otherwise, no radiopaque foreign bodies within the forearm or humerus. IMPRESSION: Extensive subcutaneous gas extending proximal from the hand into the forearm and to the level of the distal upper arm. No fractures. Electronically signed by: Tomy Pina M.D. 08/24/2017 11:06 PM Dictated Date/Time: 08/24/2017 11:04 PM
--- NOTE | 2017-08-24 23:16 | Medical Consult ---
Consultation Note Date of Service Aug 24, 2017. Consultation Note Consult called by: Oleg Merlos PA-C CHIEF COMPLAINT: Left hand sandblaster injury. HISTORY OF PRESENT ILLNESS: patient is a 62-year-old, [id number] male, who injured his left hand with a sandblaster earlier today around 4 PM. He came to the emergency room where he was evaluated. He was to be accepted for transfer to a trauma center and [place]. However, there were problems with transportation out of [place] with no ambulances available. He last ate at 1 PM. He rates his pain an 8/10. His tetanus is up-to-date. Past Medical history: Basal cell carcinoma, diabetes, and HTN. Past Surgical history: Excision basal cell carcinoma . MEDICATIONS: Scheduled Allopurinol (Zyloprim), 300 MG PO QAM Amlodipine (Norvasc), 10 MG PO QAM Atorvastatin (Lipitor), 20 MG PO HS Losartan Potassium (Cozaar), 50 MG PO QAM Metformin Hcl Er (Glucophage Er), 500 MG PO QAM Pantoprazole (Protonix), 40 MG PO QAM Triamterene/Hctz (Dyazide 37.5MG/25MG), 1 TAB PO QAM. ALLERGIES: No known drug allergies. FAMILY HISTORY: Noncontributory. 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 Denies smoking admits to occasional alcohol use. Denies recreational drug use. REVIEW OF SYSTEMS: A 10-point review of systems is noted in ER sharededical record. PHYSICAL EXAM: Patient is in no acute distress breathing easily at 16-20 breaths per minute. They have an appropriate mood and affect. They weigh 116.7 kg d are 180.3 cm tall. Focusing on his left upper extremity, his sensation to light touch is intact distally, he has 2+ radial pulse. His motor function of his median, radial, ulnar, AIN, PIN are intact, but only 4/5. He has a wound near his first MCP joint in the first webspace about the size of a quarter with no active bleeding. There is swelling of the hand and forearm with crepitus felt all the way towards the biceps and elbow. RADIOGRAPHS: 3 views of the hand show no fracture or dislocation. There is diffuse soft tissue gas throughout the volar and dorsal aspect of the hands and digits with a few punctate radiopaque foreign bodies. AP and lateral of the forearm and humerus again show gas throughout the soft tissues both volarly and dorsally approaching the elbow. IMPRESSION: High pressure soft tissue injury due to sand carrier, affecting the hand and forearm, open wound. PLAN: After a lengthy discussion with the patient regarding my above clinical findings, I recommended that he be transferred immediately to a [facility] higher level of care. I also spoke with the accepting physician at [facility], who agreed that the patient could not wait to be transferred in the morning and that helicopter transport was necessary.
[2017-08-24 23:59] VITALS: BP 134/77; PULSE 60; O2SAT 97
== END 2017-08-24 23:58 | disposition short-term general hospital (02) ==
LOC: C.EDB 16:25 → C.EDD 23:58
DX: T70.8XXA Other effects of air pressure and water pressure, initial encounter (principal); S61.412A Laceration without foreign body of left hand, initial encounter; W31.89XA Contact with other specified machinery, initial encounter; E11.9 Type 2 diabetes mellitus without complications; I10 Essential (primary) hypertension; Z79.84 Long term (current) use of oral hypoglycemic drugs; Z85.828 Personal history of other malignant neoplasm of skin

== ENCOUNTER → 2017-10-09 | Outpatient (CLI) | payer OTHER ==
[~2017-10-09] MED LIST changes: -CHOL20007 PO; +METF500T5 PO
[2017-10-09 13:08] LABS: HEMOGLOBIN A1C 6.6 % (4.5-5.6)
== END | disposition home or self-care (01) ==
LOC: C.LABBFT 09:23
PROVIDERS: ATTEND Internal Medicine
DX: E11.9 Type 2 diabetes mellitus without complications (principal); Z12.5 Encounter for screening for malignant neoplasm of prostate

== ENCOUNTER → 2018-02-17 | Outpatient (CLI) | payer OTHER ==
[~2018-02-17] MED LIST changes: -AMLO-114 PO; +AMLO10TA3 PO
[2018-02-17 12:47] LABS: HEMOGLOBIN A1C 6.6 % (4.5-5.6)
== END | disposition home or self-care (01) ==
LOC: C.LABBFT 08:57
PROVIDERS: ATTEND Internal Medicine
DX: E11.9 Type 2 diabetes mellitus without complications (principal)

== ENCOUNTER 2022-05-09 08:34 | Observation (INO) ==
[2022-05-09] MEDS ORDERED: niCARdipine HCL INJ 2.5 MG/ML 10 ML AMP ONE (09:44)
[2022-05-09] MEDS ORDERED: MIDAZOLAM HCL 1 MG/ML 2ML VIAL ONE (09:44)
[2022-05-09] MEDS ORDERED: HEPARIN (PORCINE) 1000 UNIT/ML 10 ML (CATH LAB USE ONLY) ONE (09:44)
[2022-05-09] MEDS ORDERED: fentaNYL citrate 100 MCG/2 ML VIAL ONE (09:44)
[2022-05-09] MEDS ORDERED: NITROGLYCERIN/D5W 100MCG/ML 20ML SYR ONE (09:45)
--- NOTE | 2022-05-09 09:51 | History & Physical Bridge Note ---
Date of Service May 09, 2022 History & Physical Bridge Note I have examined the patient, reviewed the History & Physical and in the interval since the performance of the History & Physical I have noted the following changes of clinical significance: no changes noted Reviewed HnP from Dr Hyatt. Reviewed stress echo from Dr Roldan. Infero-apical ischemia. Plan definitive evaluation by coronary angiography +/- PCI as indicated.
--- NOTE | 2022-05-09 09:52 | Pre Anesthesia Assessment ---
Date of Service May 09, 2022 Pre Sedation Assessment Vital Signs Temp Pulse Resp BP Pulse Ox O2 Del Method 05/09/22 08:55 36.3 C L 60 18 107/70 97 Room Air Cardiovascular RRR, no murmur, no edema Respiratory normal respiratory effort, lungs clear to auscultation Pre-Sedation Airway Assessment Smoking Status: Former smoker Hx Sleep Apnea: No Short, Thick Neck: No Thyromental Distance: > or= 3.5 Finger Breadths Oral Cavity: + WNL Mallampati Class: III ASA: ASA3 NPO Status Date of Last Intake of Fluids: 05/09/22 Time of Last Intake of Fluids: 06:00 Date of Last Intake of Solid Food: 05/08/22 Time of Last Intake of Solid Foods: 19:00 Notes The planned sedation has been discussed with the patient. Informed Consent was obtained. I have identified the patient, determined the appropriateness of sedation and have assessed the patient immediately prior to the procedure. All medicine(s) and interventions are by my order.
[2022-05-09] MEDS ORDERED: DOPamine 400MG / 250ML D5W (Cath Lab Use ONLY) IV ONE (10:31)
[2022-05-09] MEDS ORDERED: ONDANSETRON INJ 2 MG/ML 2 ML VIAL ONE (10:34)
[2022-05-09] MEDS ORDERED: PHENYLEPHRINE HCL INJ 10 MG/ML VIAL (CATH LAB USE ONLY) ONE (10:38)
[2022-05-09] MEDS ORDERED: CLOPIDOGREL BISULFATE 300 MG TAB ONE (10:46)
[2022-05-09] MEDS ORDERED: ASPIRIN 81 MG CHEW ONE (10:46)
[2022-05-09] MEDS ORDERED: EPTIFIBATIDE 0.75 MG/ML 75MG VIAL (CATH LAB USE ONLY) IV ONE (10:48)
[2022-05-09] MEDS ORDERED: EPTIFIBATIDE 2 MG/ML 10 ML VIAL (CATH LAB USE ONLY) IV ONE (10:48)
[2022-05-09] MEDS ORDERED: hydrALAZINE HCL 20 MG/ML VIAL IV PRN (11:03)
[2022-05-09] MEDS ORDERED: LIDOCAINE 1% LOCAL 20 ML VIAL ONE (11:09)
[2022-05-09] MEDS ORDERED: EPTIFIBATIDE 75 MG/100 ML VIAL IV SCH (11:15)
[2022-05-09] MEDS ORDERED: PHARMACY GLYCEMIC MGMT CONSULT PRN (15:09)
[2022-05-09] MEDS ORDERED: DEXTROSE 50% 50 ML SYRINGE IV PRN (16:00)
[2022-05-09] MEDS ORDERED: GLUCOSE 40% GEL 15 GM TUBE PO PRN (16:00)
[2022-05-09] MEDS ORDERED: GLUCOSE 10 TAB/TUBE PO PRN (16:00)
[2022-05-09] MEDS ORDERED: CARBOHYDRATES FOR HYPOGLYCEMIA PO PRN (16:00)
[2022-05-09] MEDS ORDERED: GLUCAGON FOR INJ 1 MG VIAL IM PRN (16:00)
[2022-05-09] MEDS: INSULIN ASPART PER UNIT SC SCH ×2 (17:08→21:39)
[2022-05-09 17:47] LABS: Hematocrit (blood only) 45.2 % (40.1-51.0); Hemoglobin 14.9 g/dl (14.0-18.0); Mean Corpuscular Volume 87.9 fL (80.0-100.0); Platelet Count 324 K/uL (130-400); RDW Coefficient of Variation 14.5 % (11.5-14.5); RDW Standard Deviation 47.2 fL (36.4-46.3); Red Blood Count 5.14 M/uL (4.63-6.08); White Blood Count 14.39 K/ul (4.8-10.8)
[2022-05-09 17:59] LABS: Albumin Globulin Ratio 1.4 (0.9-2); BUN Creatinine Ratio 17.1 (10-20); Bilirubin,Total 0.7 mg/dl (0.2-1.0); Calcium 9.1 mg/dl (8.5-10.1); Creatinine Clr Calc Pharmacy 69.8 ml/min; Est GFR (African American) 66.1 ml/min; Globulin 2.8 gm/dl (2.5-4.0); Potassium 3.7 mmol/L (3.5-5.1); Total Protein 6.8 gm/dl (6.0-8.3)
[2022-05-09 18:51] LABS: Basophils # (auto) 0.07 K/uL (0-0.2); Basophils % (auto) 0.5 %; Echinocytes 1+; Eosinophils # (auto) 0.05 K/uL (0-0.50); Eosinophils % (auto) 0.3 %; Immature Granulocytes # (auto) 0.06 K/uL (0.00-0.02); Immature Granulocytes % (auto) 0.4 %; Lymphocytes # (auto) 7.21 K/uL (1.2-3.4); Lymphocytes % (auto) 50.1 %; Monocytes # (auto) 0.73 K/uL (0.24-0.82); Monocytes % (auto) 5.1 %; Neutrophils # (auto) 6.27 K/uL (1.4-6.5); Neutrophils % (auto) 43.6 %
[2022-05-09] MEDS ORDERED: LANTUS PER UNIT CHARGE SQ ONE (21:00)
--- NOTE | 2022-05-09 21:48 | Hospitalist Consultation ---
Date of Consultation May 09, 2022 Assessment & Plan (1) ANN (dyspnea on exertion): treated by primary team (2) Chronic lymphocytic leukemia: stable. 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 No symptoms currently. Plan medicine will sign off as patient will be discharged by primary team tomorrow. History of Present Illness Reason for Consultation: medical management Attending Physician: Alexis Thompson MD, PhD History of Present Illness 67 yo male presents to the hospital for a planned cardiac cath as he had a positive outpatient stress test suggestive of myocardial ischemia. Patient also has PMH of Diabtees Mellitus II, CML. He states his blood sugars are well controlled and his CML has not required any treatment and is monitored by his database analyst. Patient reports he tolerated the procedure well and has no new complaints. Allergies Allergy/AdvReac Type Severity Reaction Status Date / Time No Known Allergies Allergy Verified 05/09/22 08:59 Home Medications Medication Instructions Recorded Confirmed Type blood-glucose meter (FortumoTouch #1 ea 02/28/20 04/25/22 Rx Verio Flex Start kit) allopurinol 300 mg tablet 300 mg PO DAILY #90 tabs 10/09/20 05/09/22 Rx lancets 30 gauge (OneTouch Delica #100 ea 03/05/21 04/25/22 Rx Lancets) cholecalciferol (vitamin D3) 50 50 mcg PO DAILY 03/06/21 05/09/22 History mcg (2,000 unit) capsule mecobalamin (vitamin B12) 1,000 1,000 mcg sublingual DAILY 03/08/21 05/09/22 History mcg disintegrating tablet,sublingual blood sugar diagnostic (FortumoTouch #400 ea 03/26/21 04/25/22 Rx Verio test strips) losartan 100 mg tablet 100 mg PO DAILY #90 tabs 03/28/21 05/09/22 Rx amlodipine 10 mg tablet 10 mg PO DAILY #90 tabs 09/04/21 05/09/22 Rx pantoprazole 40 mg tablet,delayed 40 mg PO DAILY #90 tabs 09/04/21 05/09/22 Rx release triamterene 37.5 1 tab PO DAILY #90 tabs 09/04/21 05/09/22 Rx mg-hydrochlorothiazide 25 mg tablet pen needle, diabetic 32 gauge x #100 ea 02/21/22 04/25/22 Rx 5/32" (BD Michelle 2nd Gen Pen Needle) semaglutide 0.25 mg or 0.5 mg (2 1 mg (0.8 mL) subcut .COMPLEX #4.5 02/21/22 05/09/22 Rx mg/1.5 mL) subcutaneous pen mL injector (OzempChampion Windows) metformin 500 mg tablet,extended 1,000 mg PO DAILY #360 tabs 03/25/22 05/09/22 Rx release 24 hr rosuvastatin 5 mg tablet 5 mg PO DAILY #90 tabs 03/25/22 05/09/22 Rx aspirin 81 mg tablet,delayed 81 mg PO DAILY #30 tabs 04/19/22 05/09/22 Rx release metoprolol succinate 25 mg 25 mg PO DAILY #30 tabs 04/19/22 05/09/22 Rx tablet,extended release 24 hr Lantus Solostar U-100 Insulin 100 26 unit (0.26 mL) subcut DAILY #15 05/09/22 Rx unit/mL (3 mL) subcutaneous pen mL (insulin glargine) Patient History Medical History Actinic keratosis Arthralgia of multiple joints Patel's esophagus EGD 12/28/2019 - repeat in 2 years Benign neoplasm of large intestine Decreased libido Diabetes IDDM GERD (gastroesophageal reflux disease) History of basal cell carcinoma History of SCC (squamous cell carcinoma) of skin Hx of gout Hyperlipidemia Hypertension LAFB (left anterior fascicular block) Mitral regurgitation NO CARDS Onychomycosis Vitamin D deficiency Surgical History H/O colonoscopy (~12/28/19) repeat in 3 years - poor prep H/O hernia repair H/O vasectomy History of esophagogastroduodenoscopy (EGD) History of hand surgery L hand surgery History of surgical removal of skin lesion multiple skin cancer spots removed [place] teeth removed Family History Father Coronary heart disease Myocardial infarction Grandfather (Paternal) Myocardial infarction Sister Hypertension Mother Skin cancer Hypertension Grandfather (Maternal) Stroke syndrome Other No family history of adverse response to anesthesia Denies family history of Ovarian cancer Prostate cancer Breast cancer Colorectal cancer Social History Smoking Status: Never smoker Second Hand Exposure: Yes ( A CHILD); Hx Alcohol Use: No Hx Substance Use: No Preferred Language: Amharic Communication Ability: Effective Visual Impairment: No Limitations Hearing Ability: Normal Inbound Sales Manager Required: No Beliefs That Will Affect Care: None marital status: Current Living Situation: Spouse current occupational status: retired Feels Safe at Home: Yes Safety Concerns: Feels Safe At This Time Childhood Exposure to Second-Hand Smoke: Yes caffeine: No during the past year weight has: remained stable Dental Care, Regularly: No Physical Activity Frequency: Daily Seatbelt Use: always Sunscreen Use: Yes Assistive Devices: Glasses Review of Systems Constitutional: no fever and no body aches Eyes: no blind spots Ear, Nose, Mouth, Throat: no ear pain Respiratory: no cough Cardiovascular: + chest pain Gastrointestinal: no abdominal pain Genitourinary: no dysuria Musculoskeletal: no back pain Integumentary: no acne Neurologic: no gait abnormality Psychiatric: no behavioral changes Endocrine: no fatigue Hematologic / Lymphatic: no easy bleeding Allergy / Immunological: no GI upset with certain foods Results & Data Results & Data ([facility]) Vital Signs (Past 12 Hours) Vital Signs Temp Pulse Pulse Resp BP Pulse Ox O2 Del Method 05/09/22 19:00 36.5 C 68 15 130/80 95 Room Air 05/09/22 17:40 36.7 C 62 18 108/68 93 Room Air 05/09/22 16:40 36.4 C L 69 18 110/70 93 Room Air 05/09/22 14:00 65 05/09/22 14:30 Room Air 05/09/22 15:40 36.4 C L 61 20 120/81 95 Room Air 05/09/22 14:45 36.7 C 67 18 108/74 95 Room Air 05/09/22 14:15 36.4 C L 64 20 116/79 95 Room Air 05/09/22 13:45 36.7 C 62 18 117/80 93 Room Air 05/09/22 13:15 36.4 C L 59 L 18 121/93 96 Room Air 05/09/22 13:00 36.6 C 55 L 18 118/80 97 Room Air 05/09/22 12:45 36.4 C L 58 L 18 124/76 95 Room Air 05/09/22 12:30 36.4 C L 55 L 12 122/73 94 Room Air 05/09/22 11:50 57 L 16 109/68 99 Room Air 05/09/22 11:35 51 L 16 112/69 97 Room Air 05/09/22 11:20 60 16 103/69 97 Room Air 05/09/22 11:05 56 L 16 101/67 94 Room Air PG Care Time/CCT Total # of Minutes Spent Total Time Spent with Patient: Total time spent is greater than 50% in coordination of care (as documented) at patient's floor/unit and/or counseling patient: Coding Level of Care Code 92777 Inpt Consult Level 3 Diagnoses ANN (dyspnea on exertion) R06.09 Chronic lymphocytic leukemia C91.10 Controlled type 2 diabetes mellitus E11.9 Patel esophagus K22.70
[2022-05-09] MEDS ORDERED: [UNRECOGNIZED DRUG - REMARK] ONE (23:00)
--- NOTE | 2022-05-10 07:13 | Pharmacy Report ---
Pharmacy Glycemic Short Note 2 - Date of Service May 10, 2022 - Glycemic Short BSG Results (Last 24 hours): 05/09/22 05/09/22 05/09/22 09:03 16:09 17:01 Glucose 122 H POC Glucose 116 H 111 H 05/09/22 20:05 Glucose POC Glucose 128 H OUTPATIENT ANTIDIABETIC REGIMEN: * Lantus 26 units SC HS * Metformin 1000 mg PO BID * Ozempic 0.5 mg SC every Friday * HbA1c = 6.6% (04/25/22) ASSESSMENT: * 67 yo M admitted for an elective cardiac catheterization. Today is POD #1. Type 2 diabetic as outpatient on basal insulin, metformin and GLP-1RA with good glycemic control based on most recent A1c. Ordered and tolerating a type 2 diabetic diet. * BSGs s/p cardiac cath were 122 and 128 mg/dL last evening. Started on Novolog based on weight/stress of 2. Received 9 units with dinner. Also, received 15 units of Lantus at bedtime which was an approximate 40% reduction in home dose. * Continue with current Novolog parameters. Will add on 20 units of Lantus at bedtime. PLAN FOR INPATIENT GLYCEMIC CONTROL: * Hold outpatient oral diabetes medications * Basal insulin * Lantus 20 units SC HS * Bolus insulin * NovoLog per scale ACHS or Q6hrs while NPO * Goal Range: Low 110 mg/dL - High 140 mg/dL * Correction Factor: 20 mg/dL/unit * Nutritional / Prandial insulin per carb ratio of 1 unit per 7 grams CHO consumed
[2022-05-10 07:20] LABS: Hematocrit (blood only) 42.6 % (40.1-51.0); Hemoglobin 14.3 g/dl (14.0-18.0); Mean Corpuscular Hemoglobin 29.2 pg (25.0-34.0); Mean Corpuscular Hgb Conc 33.6 g/dL (32.0-36.0); Mean Corpuscular Volume 87.1 fL (80.0-100.0); Mean Platelet Volume 9.8 fL (9.4-12.4); Platelet Count 285 K/uL (130-400); RDW Coefficient of Variation 14.6 % (11.5-14.5); RDW Standard Deviation 46.5 fL (36.4-46.3); Red Blood Count 4.89 M/uL (4.63-6.08); White Blood Count 12.73 K/ul (4.8-10.8)
[2022-05-10 07:41] LABS: BUN Creatinine Ratio 16.8 (10-20); Calcium 8.7 mg/dl (8.5-10.1); Creatinine Clr Calc Pharmacy 68.4 ml/min; Est GFR (African American) 64.8 ml/min; Est GFR (Non-African American) 55.9 ml/min; Potassium 3.3 mmol/L (3.5-5.1)
[2022-05-10 08:12] LABS: Basophils # (auto) 0.09 K/uL (0-0.2); Basophils % (auto) 0.7 %; Eosinophils # (auto) 0.09 K/uL (0-0.50); Eosinophils % (auto) 0.7 %; Immature Granulocytes # (auto) 0.04 K/uL (0.00-0.02); Immature Granulocytes % (auto) 0.3 %; Lymphocytes % (auto) 50.3 %; Monocytes # (auto) 0.98 K/uL (0.24-0.82); Monocytes % (auto) 7.7 %; Neutrophils # (auto) 5.13 K/uL (1.4-6.5); Neutrophils % (auto) 40.3 %; Smudge Cells Present
[2022-05-10] MEDS ORDERED: PANTOprazole 40 MG TAB PO SCH (09:00)
[2022-05-10] MEDS ORDERED: ROSUVASTATIN CALCIUM 10 MG TAB PO SCH (09:00)
[2022-05-10] MEDS ORDERED: METOPROLOL SUCC 25MG EXT REL TAB PO SCH (09:00)
[2022-05-10] MEDS ORDERED: CLOPIDOGREL BISULFATE 75 MG TAB PO SCH (09:00)
[2022-05-10] MEDS ORDERED: LOSARTAN POTASSIUM 50 MG TAB PO SCH (09:00)
[2022-05-10] MEDS: INSULIN ASPART PER UNIT SC SCH (09:27)
--- NOTE | 2022-05-10 09:58 | Cardiology Progress Note ---
Date of Service May 10, 2022 Assessment & Plan (1) Positive cardiac stress test: Plan: Patient found with severe CAD of the RCA. Underwent PCI with implantation of 2 overlapping drug-eluting stents. His heart rate and blood pressure are at target. He will continue dual antiplatelet therapy with aspirin 81 mg daily and Plavix 75 mg daily to complete at least 1 but preferably up to 2 years therapy. Guideline directed medical therapy for secondary prevention of coronary disease to include; low-dose aspirin, high intensity statin therapy, beta-josesito, and angiotensin receptor josesito. Additional antianginals can be added as an outpatient if he has any residual symptoms. (2) Hypertension: Plan: Blood pressure is currently at target. Continue losartan 100 mg daily and Toprol-XL 25 mg daily. Additional titration of regimen as an outpatient if needed. (3) Hyperlipidemia: Plan: High risk (diabetes and coronary disease). High intensity statin therapy is recommended. Previous intolerance to a atorvastatin. Has been tolerating Crestor. I have increased his Crestor to 10 mg daily for aggressive LDL reduction target. Reassessment as an outpatient. Annual lipid panel. Plan At this time, the patient is appropriate for discharge from a cardiovascular standpoint. Cardiac regimen as outlined above. He should follow-up with Dr Hyatt his primary flame planer as previously scheduled. Admission and Anticipated Discharge Date Admission Date: May 09, 2022 Subjective Patient feels well. Denies chest pain, shortness of breath, or pain at the radial access site. Monitor was reviewed and there were no arrhythmias overnight. No additional events overnight. Physical Exam Constitutional: WD/WN, vitals as above Neck: No JVD Respiratory: normal respiratory effort, lungs clear to auscultation Cardiovascular: Right radial access site is clean dry and intact. Good distal perfusion. Regular rate and rhythm. S4 gallop. No edema. Neurologic: Cognition intact. Speech fluent. No focal deficits. No tremor Psychiatric: A+Ox3, euthymic affect Results & Data ([facility]) Vital Signs (Past 12 Hours) Vital Signs Temp Pulse Pulse Resp BP Pulse Ox O2 Del Method 05/10/22 08:17 36.9 C 72 18 111/65 93 Room Air 05/10/22 07:27 65 05/10/22 03:00 36.6 C 68 20 131/77 97 Room Air PG Care Time/CCT Total # of Minutes Spent Total Time Spent with Patient: Total time spent is greater than 50% in coordination of care (as documented) at patient's floor/unit and/or counseling patient: Coding [place] [address] Subseq Hosp Care Lvl 1 Patient Type Established Diagnoses Positive cardiac stress test R94.39 Hypertension I10 Hyperlipidemia E78.5
--- NOTE | 2022-05-10 10:05 | Cardiac Catheterization ---
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 Cardiac Status Clinical evaluation leading to the procedure CAD Presenation: Positive Stress Test Anginal Classification: CCS III Heart Failure: No Cardiogenic Shock within 24 Hours: No Cardiac Arrest within 24 Hours: No Imaging Studies Past 6 Months: Yes Stress Studies Past 6 Months: Yes Stress Echocardiogram: Yes - Positive Coronary Anatomy Dominant: Co-Dominant Left Main (% Stenosis): Normal LAD (% Stenosis): Proximal (Mild), Mid (Mild) and Distal (Focal 40%) D1 (% Stenosis): Normal D2 (% Stenosis): Normal Circumflex (% Stenosis): Normal (Mild) OM1 (% Stenosis): Normal OM2 (% Stenosis): Normal (Mild) L PL1 (% Stenosis): Normal L PDA (% Stenosis): Normal RCA (% Stenosis): Proximal (Severe 70 to 80% continues through mid), Mid (70 to 80%) and Distal (Mild) R PDA (% Stenosis): Normal (Mild irregularities) Diagnostic Physicians Name: Alexis Thompson MD, PhD Closure Device Percutaneous Entry Location: Radial Closure Device: Radial Band Recommendations: Medical Therapy and/or Counseling and PCI without planned CABG PCI Indication: + Stress Test Lesion Segment Name: Proximal to mid RCA Culprit Artery: Yes Stenosis Prior to Rx (%): 70 to 80% Chronic Total Occlusion: No Pre-Procedure IGLESIA Flow: 2 Previously Treated Lesion: No Lesion Complexity: High/C Lesion Length (mm): 20 mm Thrombus Present: No Bifurcation Lesion: No Guidewire Across Lesion: Yes Intraprocedure Events Significant Disection: No Perforation: No Cardiac Cath Procedure Full Procedure Date May 10, 2022 Pre-Procedure Diagnosis Pre-Procedure Diagnosis: Positive Stress Test AUC Score AUC Score: 09 Post-Procedure Diagnosis Post-Procedure Diagnosis: Severe CAD Procedure(s) Performed Procedure(s) Performed: Coronary Angiography and Drug Eluting Stent Communicable Disease Specialist Alexis Thompson MD, PhD Estimated Blood Loss Estimated Blood Loss: 10 mL Medication(s) Medication(s): Dopamine, Fentanyl, Integrilin, Lidocaine 1%, Metoprolol, Nicardipine, Nitroglycerin and Versed Summary of Findings Brief description: Patient was brought to the cardiac catheterization suite where he was shaved and prepped in a sterile fashion. Sedated using IV Versed and fentanyl. Soft tissues of the right wrist were anesthetized using 2 mL of 1% Xylocaine. The right radial artery was accessed using a modified Seldinger technique and a 6 [place] radial artery glide sheath was placed. Patient was provided anticoagulation with IV heparin and antispasmodics including nicardipine and nitroglycerin. All catheters were advanced and exchanged over a 0.035 J-tip wire. Left coronary angiography was performed in orthogonal views with a 5 [place] TIGR diagnostic catheter. Right coronary angiography was performed in orthogonal views with the same 5 [place] TIGR diagnostic catheter Diagnostic catheters were removed. We prepared for PCI of the RCA. 6 [place] JR4 guide catheter was used to engage the right coronary. Through this, a [employer] guidewire was advanced and positioned distally. The long lesion in the RCA was predilated using a 2.0 x 12 mm PTCA balloon inflated up to 14 joel. We then implanted a 2.5 x 12 mm arvind point drug-eluting stent to cover the more distal and midportion of the lesion. Then, a second 12.5 x 12 mm arvind point was implanted with the distal edge overlapped with the proximal edge of the initial stent to cover the remainder of the mid and proximal lesion. The proximal to midportion of the stent train was postdilated using a 2.5 x 8 mm noncompliant balloon inflated up to 18 joel. After removal of stent and wire final angiographic evaluation was performed. The guide catheter was then removed. Note: Patient did have a vasovagal response to initial PTCA with mildly reduced blood pressure and bradycardia. This was symptomatic. He received IV fluids, vasopressor support, and eventually his blood pressure and heart rate improved. Radial artery sheath was removed and hemostasis was obtained using a TR band. Patient remained hemodynamically stable and asymptomatic. He was returned to the recovery area. This ended the case. Coronary angiography and PCI findings: LMT: Large-caliber vessel bifurcating into LAD and left circumflex. No angiographically significant disease. LAD: Large caliber and transapical. Provides a large septal branch, a small first diagonal followed by a medium to large branching second diagonal. Proximal LAD has mild diffuse disease. The mid vessel has extension of the disease which is mild less than 50% narrowing. The early distal LAD has a focal 40% stenosis. The remainder of the LAD and its branches have no more than mild luminal irregularities. LCx: This is large and codominant. Proximal segment in the AV groove has mild luminal irregularities. It gives a large branching OM1 which is normal. The mid segment has less than 20% disease and then gives a large caliber OM 2 which has diffuse mild disease. Distal AV groove vessel begins to taper providing a small posterolateral branch and then a relatively large PDA which has mild luminal irregularities. RCA: Medium to large caliber and codominant. Tortuous in the proximal and mid segment. The late proximal segment is diseased with that disease extending throughout the mid segment. The lesion is eccentric and has angiographically 70 to 80% narrowing. There is IGLESIA II flow distal to the lesion. Distal RCA has mild diffuse disease and becomes the PDA which has predominantly mild disease with up to 40% narrowing. PCI of RCA: There is 0% residual stenosis post PCI. No evidence of dissection or perforation post PCI IGLESIA-3 flow post PCI Summary: 1. Mild to moderate nonocclusive disease in the left coronary system. 2. Severe complex disease of the RCA. This corresponds to abnormality found on stress testing. 3. Successful PCI of the RCA utilizing 2 overlapped drug-eluting stents. 4. Patient will be on dual antiplatelet therapy for at least 1 but preferably up to 2 years. 5. Guideline directed medical therapy for secondary prevention of coronary disease to include; low-dose aspirin, high intensity statin therapy, beta- josesito, plus or minus ONEIDA inhibitor/ARB. Hemodynamics Rest Ao:: 97/66 mmHg, mean 80 mmHg Final Ao: 116/70 mmHg, mean 88 mmHg LV: Not performed Recommendations Recommendations: Medical Therapy and/or Counseling and PCI without planned CABG Radiation Exposure (mGy) 2291 mGy, fluoroscopy time 11.8 minutes Contrast (mls) 140 mL Anesthesia 1 mg IV Versed, 25 mcg IV fentanyl. Procedural Complication(s) None Disposition Recovery Room\PACU I attest to the content of the Intraoperative Record and any orders documented therein. Any exceptions are noted below. EzLikeG Card Cath Procedure Codes Cardiac Catheterization Procedure 1: Cardiovascular Cath Procedures: 90390 Coronaries Moderate Sedation Procedure 1: Sedation/Anesthesia: 04438 Mod Sedation by the same physician;Init15 Min Child Age 5 & Up (15 min) Procedure 2: Sedation/Anesthesia: 27007 Mod Sedation by the same physician; Ea [id number] Minutes (38 additional minutes. Total sedation time 53 minutes) Stenting Procedure 1: Cardiovascular Stent Procedures: 73579 Perc transcatheter placement of intracoronary stent(s), with ang PG Care Time/CCT Total # of Minutes Spent Total Time Spent with Patient: Total time spent is greater than 50% in coordination of care (as documented) at patient's floor/unit and/or counseling patient:
--- NOTE | 2022-05-10 10:41 | Electrocardiogram Report ---
Test Reason : Blood Pressure : / mmHG Vent. Rate : 051 BPM Atrial Rate : 051 BPM P-R Int : 190 ms QRS Dur : 106 ms QT Int : 474 ms P-R-T Axes : 035 -41 109 degrees QTc Int : 436 ms Sinus bradycardia Left axis deviation Nonspecific ST and T wave abnormality Abnormal ECG When compared with ECG of 03-MAR-2021 11:46, T wave inversion less evident in Lateral leads Confirmed by Regis Roldan ([id number]) on 05/10/2022 10:41:45 AM Referred By: Bismark Hyatt Confirmed By:Rashaun Roldan
--- NOTE | 2022-05-10 10:44 | Electrocardiogram Report ---
Test Reason : Blood Pressure : / mmHG Vent. Rate : 068 BPM Atrial Rate : 068 BPM P-R Int : 204 ms QRS Dur : 090 ms QT Int : 420 ms P-R-T Axes : -04 004 061 degrees QTc Int : 446 ms Sinus rhythm with Premature atrial complexes Abnormal ECG When compared with ECG of 09-MAY-2022 12:38, (unconfirmed) Premature atrial complexes are now Present Questionable change in QRS duration Confirmed by Regis Roldan ([id number]) on 05/10/2022 10:43:53 AM Referred By: Bismark Hyatt Confirmed By:Rashaun Roldan
[2022-05-10] MEDS ORDERED: POTASSIUM CHLORIDE CRTAB 20 MEQ TABCR PO STA (10:49)
--- NOTE | 2022-05-10 11:27 | Discharge Summary ---
Date of Service May 10, 2022 Principal Diagnosis severe CAD Discharge Exam Constitutional WD/WN, vitals as above Neck trachea midline, no thyromegaly Respiratory normal respiratory effort, lungs clear to auscultation Cardiovascular RRR, no murmur, no edema Gastrointestinal (Abdomen) normal bowel sounds, soft, nontender, no hepatosplenomegaly Psychiatric A+Ox3, euthymic affect Discharge Data Allergies Allergy/AdvReac Type Severity Reaction Status Date / Time No Known Allergies Allergy Verified 05/14/22 14:07 Consultations 05/09/22 11:04 Consult Cardiac Rehabilitation Routine 05/09/22 11:13 Consult Hospitalist Routine Procedures Performed Operation Date: 05/09/22 09:30 Actual Procedures s Cineradiography w/Routine Exam - Alexis Thompson MD, PhD p Cath, Coronaries ONLY (no LV) - Alexis Thompson MD, PhD s Drug Eluting Stent SGl Vessel - Alexis Thompson MD, PhD Ordered Studies 05/09/22 07:09 CL Cath Imgs for PACS use only Routine Hospital Course (1) ANN (dyspnea on exertion): Appreciate input from CardioL Patient found with severe CAD of the RCA. Underwent PCI with implantation of 2 overlapping drug-eluting stents. His heart rate and blood pressure are at target. He will continue dual antiplatelet therapy with aspirin 81 mg daily and Plavix 75 mg daily to complete at least 1 but preferably up to 2 years therapy. Guideline directed medical therapy for secondary prevention of coronary disease to include; low-dose aspirin, high intensity statin therapy, beta-josesito, and angiotensin receptor josesito. Additional antianginals can be added as an outpatient if he has any residual symptoms. Patient will be discharged. Med list noted below. (2) Chronic lymphocytic leukemia: stable. 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 No symptoms currently. Plan medicine will sign off as patient will be discharged by primary team tomorrow. Total Time Total Time Spent Total Time Spent (In Minutes): 35 Discharge Plan Discharge Items Patient Disposition: Home - Self-Care Reason For Visit: Positive Stress Test, Dyspnea, Fatigue Discharge Diagnosis: CAD s/p PCI Activity: Per Instructions section Non-emergency contact: Living Nurse Call non-emergency contact if: you have any medication questions, your symptoms worsen, your pain is not controlled, your pain is worsening, you have a fever and your wound has increased drainage Follow-up/Referrals: Regis Hussein MD [Primary Care Provider] - 05/14/22 2:00 pm (with marcos erickson.) Yenny Parra PA-C [Physician Permit Technician] - 05/14/22 10:00 am Diet: Carb Count or DM1 Addtl Attending Provider Instructions: ACTIVITY RECOMMENDATIONS: Excess manipulation of the wrist should be avoided for the next 24-48 hours. * No lifting over 2 pounds (approximately a 1/2 gallon of milk) with the utilized arm for 24 hours. * No strenuous activity such as bowling or tennis for 3 days. * Keep the site of the procedure covered with a bandage for 24 hours. *You may shower the day after the procedure. Do not take a tub bath or submerge the puncture site in water for the next 3 days. *Do not operate any motorized equipment for 3 days. SPECIAL CARE INSTRUCTIONS: The site may be slightly bruised and sore following your procedure. Should any of the following occur, contact the Dr. who performed your procedure. 1. Redness/inflammation, swelling, chills, or fever, or colored drainage at p rocedure site within 3-7 days after your procedure. 2. Coldness, discoloration, ongoing numbness, severe pain, or swelling. Expect mild tingling of hand and tenderness at the puncture site for up to three days. If this persists beyond three days, or other symptoms develop, notify the Dr. who performed your procedure. BLEEDING: If the procedure site on your wrist begins to bleed, do not panic 1. Place 1 or 2 fingers firmly just slightly above the insertion site to stop the bleeding. You may be able to feel your pulse as you hold pressure. 2. Lift your finger after 5 minutes to see if the bleeding has stopped. 3. Once the bleeding has stopped, gently wipe the wrist area clean with a bandage. * If the bleeding from your wrist does not stop after 10 minutes, or if there is a large amount of bleeding or spurting, call 911 (do not drive yourself to the hospital). SKIN IRRITATION: * You may experience some redness and/or swelling in the area where radiation was administered. If any skin irritation occurs, please contact your family physician. FOLLOW UP VISIT: Keep any scheduled doctor appointments. Pending Studies at Discharge: No Stand-Alone Forms: My [facility], Smoking Cessation Medications and DC Order Prescriptions: New clopidogrel 75 mg Tablet 75 mg PO QAM Qty: 90 3RF rosuvastatin 10 mg Tablet 10 mg PO QAM Qty: 90 3RF Continued allopurinol 300 mg tablet 300 mg PO DAILY Qty: 90 3RF (DME) OneTouch Verio test strips Strip See Rx Instructions .Route Qty: 400 3RF Rx Instructions: Test blood sugar four times daily losartan 100 mg tablet 100 mg PO DAILY Qty: 90 3RF amlodipine 10 mg tablet 10 mg PO DAILY Qty: 90 3RF pantoprazole 40 mg tablet,delayed release (DR/EC) 40 mg PO DAILY Qty: 90 3RF triamterene-hydrochlorothiazid 37.5-25 mg tablet 1 tab PO DAILY Qty: 90 3RF aspirin 81 mg tablet,delayed release (DR/EC) 81 mg PO DAILY Qty: 30 2RF metoprolol succinate 25 mg tablet extended release 24 hr 25 mg PO DAILY Qty: 30 5RF insulin glargine [Lantus Solostar U-100 Insulin] 100 unit/mL (3 mL) insulin pen 26 unit subcut DAILY Qty: 15 5RF (DME) blood-glucose meter [OneTouch Verio Flex Start] Kit See Rx Instructions .ROUTE .MEDSUPPLY Qty: 1 0RF Rx Instructions: As directed (DME) lancets [OneTouch Delica Lancets] 30 gauge misc See Rx Instructions .Route Qty: 100 0RF Rx Instructions: As directed cholecalciferol (vitamin D3) 50 mcg (2,000 unit) capsule 50 mcg PO DAILY metformin 500 mg tablet extended release 24 hr 1,000 mg PO DAILY Qty: 360 3RF Ozempic 0.25 mg or 0.5 mg(2 mg/1.5 mL) pen injector 1 mg subcut .COMPLEX Qty: 4.5 3RF Label Comments: SUNDAYS Rx Instructions: 1 mg subcutaneously once weekly; (DME) pen needle, diabetic [BD Michelle 2nd Gen Pen Needle] 32 gauge x 5/32" needle See Rx Instructions .ROUTE .MEDSUPPLY Qty: 100 3RF Rx Instructions: Use new pen needle 1x a day mecobalamin (vitamin B12) 1,000 mcg tablet,disintegrating 1,000 mcg sublingual DAILY Rx Instructions: place tablet under tongue and allow to dissolve for at least30 secs before swallowing Discontinued rosuvastatin 5 mg tablet 5 mg PO DAILY Qty: 90 3RF Discharge Orders: Discharge Order (Routine); Ordered 05/10/22 Ordered By: Saul Barriga Admission Data Admit Date/Time: 05/09/22 10:58 Attending Provider: Saul Barriga Admit Provider: Lucero Rodriguez Primary Care Provider: Regis Hussein Other Providers: Alexis Thompson Other Interventions: Discharge Summary Assessment (RN) Last Done: 05/10/22 11:50 Coding Level of Care Code 35000 OBS Care - Discharge Diagnoses ANN (dyspnea on exertion) R06.09 Chronic lymphocytic leukemia C91.10 Controlled type 2 diabetes mellitus E11.9 Patel esophagus K22.70
[2022-05-10] MEDS ORDERED: LANTUS PER UNIT CHARGE SQ SCH (21:00)
== END 2022-05-10 12:31 | disposition home or self-care (01) ==
LOC: CC 08:34 → 2E 08:34 → SUATTDRO 10:58
PROC: CLB.CCO (2022-05-09 09:30)
DX: R53.83 Other fatigue; Z82.49 Family history of ischemic heart disease and other diseases of the circulatory system; Z87.891 Personal history of nicotine dependence; E11.9 Type 2 diabetes mellitus without complications; Z79.4 Long term (current) use of insulin; Z79.84 Long term (current) use of oral hypoglycemic drugs; Z79.82 Long term (current) use of aspirin; Z79.899 Other long term (current) drug therapy; Z82.3 Family history of stroke; R06.09 Other forms of dyspnea; E78.5 Hyperlipidemia, unspecified; R94.39 Abnormal result of other cardiovascular function study; I10 Essential (primary) hypertension; C91.10 Chronic lymphocytic leukemia of B-cell type not having achieved remission; I25.10 Atherosclerotic heart disease of native coronary artery without angina pectoris